=== PATIENT | male | born 1990 | race Caucasian/White ===

== ENCOUNTER 2017-09-22 12:27 | Inpatient (IN) | payer MEDICAID ==
[2017-09-22 13:12] LABS: CHLORIDE,CL 105 mmol/L (98-107); SODIUM,NA 141 mmol/L (136-145)
[2017-09-22] MEDS ORDERED: Ondansetron 4 MG Tab.DIS PO PRN (15:00)
[2017-09-22] MEDS ORDERED: Ondansetron 4 MG/2 ML SDV IVPUSH PRN (15:00)
[2017-09-22] MEDS ORDERED: Acetaminophen 325 MG Tab PO PRN (15:00)
[2017-09-22] MEDS ORDERED: Clindamycin Phosphate 600 MG in Sodium Chloride 0.9% 100 ML IV SCH (16:00)
--- NOTE | 2017-09-22 16:28 | PCM.HP ---
H&P History of Present Illness - General Date of Service: 09/22/17 Admit Problem/Dx: Admission Diagnosis/Problem Admission Diagnosis/Problem Cellulitis and abscess of lower extremity Source of Information: Patient, Other ([facility],[place]) History Limitations: Reports: Other (Patient has autism, appears to have cognitive deficits) - History of Present Illness Initial Comments - Free Text/Narative: Patient sent to us for admission and treatment of left leg cellulitis. Has been seen at [facility] by Mariaa three times since last summer for issues with lower leg dermatitis. Previous diagnoses of obesity and hypertension. Patient says his blood pressure got better when he got away from "drama" and says he is no longer on medication. Used to live in [place] but moved here to be closer to family. Disabled. Cannot say why and adds that his mother would know why. When asked if he has autism, he shakes head yes. Don notes that patient has not picked up prescribed creams/medications at the local pharmacy after being seen for the leg issues. He returned today and is more swollen, crusted, and has redness suggesting cellulitis. He denies having any fevers. No new pain in area but patient does have problems with diffuse aches and pains chronically. He denies having any other issues. Initially he did not want to be admitted here but Quinton was able to convince him of the need for aggressive treatment. Speaking with him, patient appears to have no insight into severity of changes noted in lower extremities both chronically, and acutely. Stepmother eventually arrived and said that patient is supposed to be getting help from an organization that is supposed to help him learn to live on his own , pay bills/cook/bathe but they are very unhappy with this group. [employer] is name of organization. Per estefania [employer] does not show up half the time they are scheduled to show, including today. Staff member was supposed to be present for today's medical appointment and did not show. - Related Data Allergies/Adverse Reactions: Allergies Allergy/AdvReac Type Severity Reaction Status Date / Time No Known Allergies Allergy Verified 09/22/17 17:05 Past Medical History Cardiovascular History: Reports: Hypertension Psychiatric History: Reports: Anxiety, Autism, Other (See Below) (Uncertain what other official diagnoses pertain to patient, or if diagnosed cognitive impairment present.) Endocrine/Metabolic History: Reports: Obesity/BMI 30+ Social & Family History - Family History Family Medical History: Unobtainable (Patient was abandoned by both parents at early age. Unknown family history) - Tobacco Use Smoking Status *Q: Never Smoker - Alcohol Use Alcohol Use History: No - Recreational Drug Use Recreational Drug Use: No Drug Use in Last 12 Months: No H&P Review of Systems - Review of Systems: Review Of Systems: See Below General: Reports: No Symptoms. Denies: Fever, Chills HEENT: Reports: No Symptoms Pulmonary: Reports: No Symptoms Cardiovascular: Reports: No Symptoms Gastrointestinal: Reports: No Symptoms Genitourinary: Reports: No Symptoms Musculoskeletal: Reports: No Symptoms Skin: Reports: Pruritis (lower legs), Rash (Lower legs), Erythema (lower legs), Other (crusting, scattered blisters bilateral lower legs. Open area where top layer skin sloughed off anterior left trotter, 6cm by 6cm. ) Psychiatric: Reports: No Symptoms (Denies acute changes). Denies: Hallucinations, Suicidal Ideation, Homicidal Ideation, Hallucinations (Auditory) , Hallucinations (Visual) Neurological: Reports: No Symptoms Hematologic/Lymphatic: Reports: No Symptoms Exam - Exam Exam: See Below - Exam General: Alert, Oriented, Cooperative, Other (moderately poor eye contact, slightly anxious) HEENT: Conjunctiva Clear, EOMI, Hearing Intact, Mucosa Moist & [place], Nares Patent, Pupils Equal, Pupils Reactive, TMs Clear (right TM clear, left blocked by wax) Neck: Supple, Trachea Midline Lungs: Clear to Auscultation, Normal Respiratory Effort Cardiovascular: Regular Rate, Regular Rhythm GI/Abdominal Exam: Normal Bowel Sounds, Soft, Non-Tender, Other (very obese abdomen) (Male) Exam: Deferred Rectal (Males) Exam: Deferred Back Exam: No: CVA Tenderness (L), CVA Tenderness (R), Muscle Spasm, Paraspinal Tenderness Extremities: Normal Capillary Refill, Other (bilateral edema, pitting, both lower extremities. Erythema noted below knees/involving ankles. Open area of weeping noted anterior left trotter. Scattered blisters noted bilaterally. Unable to palpate pulse distally but good cap refill. Warm to touch distally. ) Peripheral Pulses: 2+: Radial (L), Radial (R) Skin: Other (see above) Neurological: Strength Equal Bilateral, Normal Speech, Sensation Intact Neuro Extensive - Mental Status: Alert, Oriented x3, Normal Mood/Affect DTR: 2+: Patella (L), Patella (R) Psychiatric: Anxious - Patient Data Lab Results Last 24 hrs: Laboratory Results - last 24 hr 09/22/17 09/22/17 09/22/17 Range/Units 12:31 12:31 12:35 WBC 10.9 H (4.0-10.2) K/uL RBC 4.96 (4.33-5.41) M/uL Hgb 15.1 (13.1-16.8) g/dL Hct 44.3 (39.0-49.0) % MCV 89.3 (84.0-98.0) fL MCH 30.4 (28.2-33.3) pg MCHC 34.1 (31.7-36.0) g/dL RDW 13.7 (11.2-14.1) % Plt Count 261 (150-350) K/uL Neut % (Auto) 50.4 (45.0-80.0) % Lymph % (Auto) 35.9 (10.0-50.0) % [place] % (Auto) 8.3 (2.0-14.0) % Eos % (Auto) 5.1 H (0.0-5.0) % Baso % (Auto) 0.3 (0.0-2.0) % Neut # (Auto) 5.51 (1.40-7.00) K/uL Lymph # (Auto) 3.93 H (0.50-3.50) K/uL [place] # (Auto) 0.91 (0.00-1.00) K/uL Eos # (Auto) 0.56 H (0.00-0.50) K/uL Baso # (Auto) 0.03 (0.00-0.20) K/uL Sodium 141 (136-145) mmol/L Potassium 4.0 (3.5-5.1) mmol/L Chloride 105 (98-107) mmol/L Carbon Dioxide 25.7 (21.0-32.0) mmol/L BUN 15 (7-18) mg/dL Creatinine 0.70 (0.51-1.17) mg/dL Est Cr Clr Drug Dosing TNP Estimated GFR (MDRD) > 60 mL/min Glucose 103 (74-106) mg/dL Hemoglobin A1c 5.7 (4.3-5.7) % Calcium 8.8 (8.5-10.1) mg/dL Total Bilirubin 0.3 (0.2-1.0) mg/dL AST 16 (15-37) U/L ALT 39 (12-78) U/L Alkaline Phosphatase 85 (46-116) IU/L C-Reactive Protein 5.9 H (<=0.9) mg/dL Total Protein 7.5 (6.4-8.2) g/dL Albumin 3.3 L (3.4-5.0) g/dL Result Diagrams: 09/22/17 12:31 09/22/17 12:31 *Q Meaningful Use (ADM) - VTE *Q VTE Criteria *Q: VTE Mechanical Contraindications *Q: Bilateral Lower Dermatits - Stroke *Q Stroke Criteria *Q: - AMI *Q AMI Criteria *Q: - Problem List (1) Cellulitis SNOMED Code(s): 623949139 ICD Code: L03.90 - CELLULITIS, UNSPECIFIED Status: Acute Priority: High Current Visit: Yes Onset Date: Unknown Problem Details: Patient diagnosed with bilateral cellulitis of lower extremities, left greater than right. Had negative lower extremity US of left leg ordered by [facility] prior to referral for admission. Patient has chronic problems with swelling of both lower legs. Attempted to culture left leg errosion after bath today. Will place patient on IV Clindamycin. Qualifiers: Site of cellulitis of extremity: lower extremity (2) Autism SNOMED Code(s): 298005978 ICD Code: F84.0 - AUTISTIC DISORDER Status: Chronic Priority: High Current Visit: Yes Problem Details: Patient is currently attempting to live on own and is not receiving help/support from contracted agency that was promised. Unsafe in current environment. No insight into chronic health problems /personal care/current infection. (3) Hypertension SNOMED Code(s): 85620846 ICD Code: I10 - ESSENTIAL (PRIMARY) HYPERTENSION Status: Chronic Priority : Medium Current Visit: Yes Problem Details: Uncertain what patient's baseline BPs have been trending. He does not check these at home. Was supposedly on medication for this in past. Will have BP checked QID while inpatient. Anxiety also contributes to his elevated readings, including on admission. Metoprolol PO given. Single dose Lasix given due to lower extremity edema and elevated BP. Will continue to observe. (4) Morbid obesity SNOMED Code(s): 520798960 ICD Code: E66.01 - MORBID (SEVERE) OBESITY DUE TO EXCESS CALORIES Status: Chronic Priority: Medium Current Visit: Yes (5) Poor hygiene SNOMED Code(s): 626435190 ICD Code: R46.0 - VERY LOW LEVEL OF PERSONAL HYGIENE Status: Chronic Priority: Medium Current Visit: Yes Problem Details: Extremely dirty, clothes included. Patient given several whirlpool baths in succession after admission. No insight into problem. Not receiving promised help in this area by contracted home assistance provider per mark. (6) Noncompliance SNOMED Code(s): 0322325 ICD Code: Z91.19 - PATIENT'S NONCOMPLIANCE W OTH MEDICAL TREATMENT AND REGIMEN Status: Acute Priority: High Current Visit: Yes Problem Details : Suspected to be due to congnitive limitations/autism. Not receiving promised help by contracted organization that is supposed to go with him to appointments and make sure that he follows through with recommendations. (7) Self neglect SNOMED Code(s): 561916098 ICD Code: R46.89 - OTHER SYMPTOMS AND SIGNS INVOLVING APPEARANCE AND BEHAVIOR Status: Chronic Priority: High Current Visit: Yes Problem Details: See above Problem List Initiated/Reviewed/Updated: Yes Orders Last 24hrs: Active Orders 24 hr Category Date Time Status Patient Status [ADT] Routine ADT 09/22/17 14:54 Ordered Height and Weight [RC] DAILY Care 09/22/17 14:54 Ordered Oxygen Therapy [RC] PRN Care 09/22/17 14:54 Ordered Pulse Oximetry [RC] PRN Care 09/22/17 15:08 Ordered Up With Assistance [RC] ASDIRECTED Care 09/22/17 14:54 Ordered VTE/DVT Education [RC] PER UNIT ROUTINE Care 09/22/17 14:54 Ordered Vital Signs [RC] Q8HR Care 09/22/17 14:54 Ordered Whirlpool [RC] DAILY Care 09/22/17 15:15 Ordered Wound Care [RC] DAILY Care 09/22/17 15:16 Ordered Consult to Case Management [CONS] Routine Cons 09/22/17 14:54 Ordered Heart Healthy Diet [DIET] Diet 09/22/17 Dinner Ordered Venous Doppler Lwr Ext Lt [US] Stat Exams 09/22/17 13:00 Taken CULTURE BLOOD [BC] Stat Lab 09/22/17 15:15 Ordered CULTURE BLOOD [BC] Stat Lab 09/22/17 15:15 Ordered CULTURE WOUND [RM] Routine Lab 09/22/17 15:26 Uncollected Acetaminophen [Tylenol] Med 09/22/17 14:54 Ordered 650 mg PO Q4H PRN Clindamycin Phosphate [Cleocin] 600 mg Med 09/22/17 15:30 Ordered Sodium Chloride 0.9% [Normal Saline] 100 ml IV Q8H Enoxaparin [Lovenox] Med 09/23/17 08:00 Ordered 40 mg SUBCUT DAILY Ondansetron [Zofran ODT] Med 09/22/17 14:54 Ordered 4 mg PO Q4H PRN Ondansetron [Zofran] Med 09/22/17 14:54 Ordered 4 mg IVPUSH Q6H PRN Sodium Chloride 0.9% [Saline Flush] Med 09/22/17 14:54 Ordered 10 ml FLUSH ASDIRECTED PRN Blood Culture x2 Reflex Set [OM.PC] Stat Oth 09/22/17 14:54 Ordered Saline Lock Insert [OM.PC] Routine Oth 09/22/17 14:54 Ordered VTE Mechanical Contraindications [AST] Per Unit Routine Oth 09/22/17 14:54 Ordered Resuscitation Status Routine Resus Stat 09/22/17 14:54 Ordered Medication Orders Acetaminophen (Tylenol) 650 mg PO Q4H PRN PRN Reason: Pain (Mild 1-3)/fever Enoxaparin Sodium (Lovenox) 40 mg SUBCUT DAILY MICHAEL Clindamycin Phosphate 600 mg/ (Sodium Chloride) 104 mls @ 200 mls/hr IV Q8H MICHAEL Ondansetron HCl (Zofran Odt) 4 mg PO Q4H PRN PRN Reason: Nausea/Vomiting Ondansetron HCl (Zofran) 4 mg IVPUSH Q6H PRN PRN Reason: Nausea/Vomiting Sodium Chloride (Saline Flush) 10 ml FLUSH ASDIRECTED PRN PRN Reason: Keep Vein Open Assessment/Plan Comment:: Patient will be given IV CLindamycin. See above for rest of plan. Vulnerable adult forms filled out. Unsafe for patient to return home with current situation and current home assistance provider. PT and OT consult requested for Monday
[2017-09-22] MEDS ORDERED: Furosemide 20 MG/2 ML VIAL IVPUSH ONE (16:56)
[2017-09-22] MEDS ORDERED: Sodium Chloride 0.9% 1,000 ML IV SCH (17:00)
[2017-09-22] MEDS: Bacitracin/Neomycin/Polymyxin B Oint 0.9 GM U/D Packet TOP SCH (17:11)
[2017-09-22] MEDS: Metoprolol Tartrate 25 MG Tab PO SCH ×2 (17:12→20:47)
[2017-09-22] MEDS: Sodium Chloride 0.9% 10 ML Syringe FLUSH PRN ×2 (17:14→17:18)
[2017-09-22] MEDS ORDERED: Metoprolol Tartrate 25 MG Tab PO SCH (20:00)
[2017-09-22] MEDS: Enoxaparin 40 MG/0.4 ML Syringe SUBCUT SCH (20:48)
[2017-09-23] MEDS: Clindamycin HCl 150 MG Cap PO SCH ×2 (01:35→06:44)
[2017-09-23] MEDS: Metoprolol Tartrate 25 MG Tab PO SCH ×2 (07:41→19:57)
[2017-09-23] MEDS: Bacitracin/Neomycin/Polymyxin B Oint 0.9 GM U/D Packet TOP SCH (07:42)
[2017-09-23] MEDS ORDERED: Enoxaparin 40 MG/0.4 ML Syringe SUBCUT SCH (08:00)
[2017-09-23] MEDS: Clindamycin Phosphate 600 MG in Sodium Chloride 0.9% 100 ML IV SCH ×2 (14:56→22:42)
[2017-09-23] MEDS ORDERED: Fluconazole 200 MG Tab PO SCH (16:00)
--- NOTE | 2017-09-23 16:52 | PCM.PN ---
- General Info Date of Service: 09/23/17 Admission Dx/Problem (Free Text): Admission Diagnosis/Problem Admission Diagnosis/Problem Cellulitis and abscess of lower extremity Subjective Update: No changes per patient. Overall he feels like his usual self. Functional Status: Reports: Pain Controlled, Tolerating Diet, Ambulating, Urinating. Denies: New Symptoms - Review of Systems General: Reports: No Symptoms HEENT: Reports: No Symptoms Pulmonary: Reports: No Symptoms Cardiovascular: Reports: No Symptoms Gastrointestinal: Reports: No Symptoms Genitourinary: Reports: No Symptoms Musculoskeletal: Reports: No Symptoms Skin: Reports: Rash Neurological: Reports: No Symptoms Psychiatric: Reports: No Symptoms - Patient Data Vitals - Most Recent: Last Vital Signs Temp 36.5 C 09/23/17 15:35 Pulse 89 09/23/17 15:35 Resp 17 09/23/17 15:35 BP 150/65 H 09/23/17 15:35 Pulse Ox 97 09/23/17 15:35 Weight - Most Recent: 202.6 kg I&O - Last 24 Hours: Intake & Output 09/23/17 09/23/17 09/23/17 06:59 14:59 22:59 Intake Total 500 1100 Output Total 450 Balance 500 650 Lab Results Last 24 Hours: Laboratory Results - last 24 hr 09/22/17 Range/Units 22:30 Specimen Type Urinvoid Urine Color Yellow Urine Appearance Clear Urine pH 5.5 (5.0-9.0) Ur Specific [place] 1.020 (1.005-1.030) Urine Protein Negative (NEGATIVE) mg/dL Urine Glucose (UA) Negative (NEGATIVE) mg/dL Urine Ketones Negative (NEGATIVE) mg/dL Urine Occult Blood Negative (NEGATIVE) Urine Nitrite Negative (NEGATIVE) Urine Bilirubin Negative (NEGATIVE) Urine Urobilinogen 0.2 (0.2-1.0) E.U./dL Ur Leukocyte Esterase Negative (NEGATIVE) Urine RBC 0-5 /HPF Urine WBC 0-5 /HPF Ur Epithelial Cells Few /LPF Urine Bacteria Few (NONE TO FEW) /HPF Urine Mucus Rare H (NEGATIVE) /LPF Tal Results Last 24 Hours: Microbiology 09/22/17 16:15 Aerobic Blood Culture - Preliminary Blood - Venous NO GROWTH AFTER 1 DAY Anaerobic Blood Culture - Preliminary NO GROWTH AFTER 1 DAY Med Orders - Current: Current Medications Acetaminophen (Tylenol) 650 mg PO Q4H PRN PRN Reason: Pain (Mild 1-3)/fever Enoxaparin Sodium (Lovenox) 40 mg SUBCUT DAILY@20 [facility] Last Admin: 09/22/17 20:48 Dose: 40 mg Fluconazole (Diflucan) 200 mg PO DAILY [facility] Clindamycin Phosphate 600 mg/ (Sodium Chloride) 104 mls @ 200 mls/hr IV Q8H [facility] Last Admin: 09/23/17 14:56 Dose: 200 mls/hr Metoprolol Tartrate (Lopressor) 25 mg PO Q12HR [facility] Last Admin: 09/23/17 07:41 Dose: 25 mg Neomycin/Polymyxin/Bacitracin (Triple Antibiotic Oint) 1 each TOP DAILY [facility] Last Admin: 09/23/17 07:42 Dose: 1 each Ondansetron HCl (Zofran Odt) 4 mg PO Q4H PRN PRN Reason: Nausea/Vomiting Ondansetron HCl (Zofran) 4 mg IVPUSH Q6H PRN PRN Reason: Nausea/Vomiting Sodium Chloride (Saline Flush) 10 ml FLUSH ASDIRECTED PRN PRN Reason: Keep Vein Open Last Admin: 09/22/17 17:18 Dose: 10 ml Discontinued Medications Clindamycin HCl (Cleocin) 450 mg PO Q6H [facility] Last Admin: 09/23/17 06:44 Dose: 450 mg Enoxaparin Sodium (Lovenox) 40 mg SUBCUT DAILY [facility] Fluconazole (Diflucan) 200 mg PO DAILY [facility] Stop: 09/23/17 16:01 Furosemide (Lasix) 20 mg IVPUSH ONETIME ONE Stop: 09/22/17 16:57 Last Admin: 09/22/17 17:15 Dose: 20 mg Clindamycin Phosphate 600 mg/ (Sodium Chloride) 104 mls @ 200 mls/hr IV Q8H [facility] Last Admin: 09/22/17 17:14 Dose: 200 mls/hr Sodium Chloride (Normal Saline) 1,000 mls @ 150 mls/hr IV ASDIRECTED [facility] Last Admin: 09/22/17 18:09 Dose: 150 mls/hr Metoprolol Tartrate (Lopressor) 25 mg PO Q12HR [facility] - Exam General: Alert, Oriented, Cooperative, No Acute Distress HEENT: Pupils Equal, Pupils Reactive, EOMI, Mucous Membr. Moist/[place] Neck: Supple Lungs: Clear to Auscultation, Normal Respiratory Effort Cardiovascular: Regular Rate, Regular Rhythm GI/Abdominal Exam: Normal Bowel Sounds, Soft, Non-Tender (Male) Exam: Deferred Back Exam: No: CVA Tenderness (L), CVA Tenderness (R), Muscle Spasm, Paraspinal Tenderness, Vertebral Tenderness Extremities: Other (Significant edema noted lower extremities below knees. Crusting/rough skin noted on both lower legs, with top area sloughed off aterior left trotter. Serosanguinous drainage. Redness appears to have improved since yesterday. Edema is stable. ) Peripheral Pulses: 1+: Dorsalis Pedis (L), Dorsalis Pedis (R) (hard to palpate with edema/swelling), 2+: Radial (L), Radial (R) Skin: Rash (See above) Wound/Incisions: Drainage, Erythema Improving Neurological: No New Focal Deficit Psy/Mental Status: Alert, Normal Affect, Normal Mood - Problem List & Annotations (1) Cellulitis SNOMED Code(s): 684000954 Code(s): L03.90 - CELLULITIS, UNSPECIFIED Status: Acute Priority: High Current Visit: Yes Onset Date: Unknown Qualifiers: Site of cellulitis of extremity: lower extremity Annotation/Comment:: Patient diagnosed with bilateral cellulitis of lower extremities, left greater than right. Had negative lower extremity US of left leg ordered by [facility] prior to referral for admission. Patient has chronic problems with swelling of both lower legs. Attempted to culture left leg errosion after bath today. Receiving Clindamycin. (2) Autism SNOMED Code(s): 257716967 Code(s): F84.0 - AUTISTIC DISORDER Status: Chronic Priority: High Current Visit: Yes Annotation/Comment:: Patient is currently attempting to live on own and is not receiving help/support from contracted agency that was promised. Unsafe in current environment. No insight into his significant chronic health problems/personal care/current infection. (3) Hypertension SNOMED Code(s): 26144147 Code(s): I10 - ESSENTIAL (PRIMARY) HYPERTENSION Status: Chronic Priority : Medium Current Visit: Yes Annotation/Comment:: Uncertain what patient's baseline BPs have been trending. He does not check these at home. Was supposedly on medication for this in past. Will have BP checked QID while inpatient. Anxiety also contributes to his elevated readings, including on admission. Metoprolol PO given. Lasix given due to lower extremity edema and elevated BP. Will continue to observe. (4) Morbid obesity SNOMED Code(s): 705248940 Code(s): E66.01 - MORBID (SEVERE) OBESITY DUE TO EXCESS CALORIES Status: Chronic Priority: Medium Current Visit: Yes Annotation/Comment:: Patient severely overweight. Compromised movement, poor circulation lower extremities. Per nursing staff observed to exhibit symptoms consistent with sleep apnea overnight. (5) Poor hygiene SNOMED Code(s): 862983613 Code(s): R46.0 - VERY LOW LEVEL OF PERSONAL HYGIENE Status: Chronic Priority: Medium Current Visit: Yes Annotation/Comment:: Extremely dirty, clothes included. Patient given several whirlpool baths in succession after admission. No insight into problem. Not receiving promised help in this area by contracted home assistance provider per stepmojohanny. Noted to have problems leaving fecal material on bed sheets. Uncertain if due to lack of understanding maintaing personal hygiene after using toilet. (6) Noncompliance SNOMED Code(s): 9930666 Code(s): Z91.19 - PATIENT'S NONCOMPLIANCE W OTH MEDICAL TREATMENT AND REGIMEN Status: Acute Priority: High Current Visit: Yes Annotation/ Comment:: Suspected to be due to congnitive limitations/autism. Not receiving promised help by contracted organization that is supposed to go with him to appointments and make sure that he follows through with recommendations. (7) Self neglect SNOMED Code(s): 934261660 Code(s): R46.89 - OTHER SYMPTOMS AND SIGNS INVOLVING APPEARANCE AND BEHAVIOR Status: Chronic Priority: High Current Visit: Yes Annotation/Comment:: See above (8) Sleep apnea SNOMED Code(s): 18570958 Code(s): G47.30 - SLEEP APNEA, UNSPECIFIED Status: Acute Priority: Medium Current Visit: Yes Annotation/Comment:: Strongly suspect sleep apnea based on nursing observations. Patient would benefit from sleep study to confirm. Significant concerns as to proper and consistent use of CPAP if patient requires this and is living on own. - Problem List Review Problem List Initiated/Reviewed/Updated: Yes - My Orders Last 24 Hours: My Active Orders 09/22/17 16:15 CULTURE BLOOD [BC] Stat 09/22/17 16:40 Bacitracin/Neomycin/Polymyxin [Triple Antibiotic Oint] 1 each TOP DAILY 09/22/17 16:41 Metoprolol Tartrate [Lopressor] 25 mg PO Q12HR 09/22/17 17:00 CULTURE BLOOD [BC] Stat CULTURE WOUND [RM] Routine 09/22/17 18:27 Intake and Output Strict [RC] 06,14,22 09/22/17 18:39 Consult to Occupational Therapy [OT Evaluation and Treatment] [CONS] Routine PT Evaluation and Treatment [CONS] Routine 09/22/17 20:00 Enoxaparin [Lovenox] 40 mg SUBCUT DAILY@20 09/22/17 23:31 Discontinue Saline Lock [Peripheral IV Discontinue] [OM.PC] Routine 09/22/17 Dinner Heart Healthy Diet [DIET] 09/23/17 14:00 Clindamycin Phosphate [Cleocin] 600 mg Sodium Chloride 0.9% [Normal Saline] 100 ml IV Q8H 09/24/17 05:11 CBC WITH AUTO DIFF [HEME] AM COMPREHENSIVE METABOLIC PN,CMP [CHEM] AM 09/24/17 08:00 Fluconazole [Diflucan] 200 mg PO DAILY 09/25/17 05:11 CBC WITH AUTO DIFF [HEME] AM COMPREHENSIVE METABOLIC PN,CMP [CHEM] AM - Assessment Assessment:: Severe lower extremity edema, severe obesity, lower leg cellulitis in vulnerable adult with autism. Suspected sleep apnea. - Plan Plan:: Patient will be given IV CLindamycin. See above for rest of plan. Vulnerable adult forms filled out. Unsafe for patient to return home with current situation and current home assistance provider. PT and OT consult requested for Monday
[2017-09-23] MEDS: Enoxaparin 40 MG/0.4 ML Syringe SUBCUT SCH (19:57)
[2017-09-23] MEDS: Sodium Chloride 0.9% 10 ML Syringe FLUSH PRN ×2 (22:42→22:46)
[2017-09-24] MEDS: Clindamycin Phosphate 600 MG in Sodium Chloride 0.9% 100 ML IV SCH ×3 (06:05→22:08)
[2017-09-24] MEDS: Sodium Chloride 0.9% 10 ML Syringe FLUSH PRN ×4 (06:06→22:08)
[2017-09-24 07:15] LABS: CHLORIDE,CL 104 mmol/L (98-107); SODIUM,NA 141 mmol/L (136-145)
[2017-09-24] MEDS: Metoprolol Tartrate 25 MG Tab PO SCH (07:50)
[2017-09-24] MEDS: Fluconazole 200 MG Tab PO SCH (07:51)
[2017-09-24] MEDS: Bacitracin/Neomycin/Polymyxin B Oint 0.9 GM U/D Packet TOP SCH (07:51)
--- NOTE | 2017-09-24 11:53 | PCM.PN ---
- General Info Date of Service: 09/24/17 Admission Dx/Problem (Free Text): Admission Diagnosis/Problem Admission Diagnosis/Problem Cellulitis and abscess of lower extremity Subjective Update: No changes per patient. Overall he feels like his usual self. Functional Status: Reports: Pain Controlled, Tolerating Diet, Ambulating, Urinating. Denies: New Symptoms - Review of Systems General: Reports: No Symptoms HEENT: Reports: No Symptoms Pulmonary: Reports: No Symptoms Cardiovascular: Reports: No Symptoms Gastrointestinal: Reports: No Symptoms Genitourinary: Reports: No Symptoms Musculoskeletal: Reports: No Symptoms Skin: Reports: Rash Neurological: Reports: No Symptoms Psychiatric: Reports: No Symptoms - Patient Data Vitals - Most Recent: Last Vital Signs Temp 36.3 C 09/24/17 07:09 Pulse 83 09/24/17 07:50 Resp 17 09/24/17 07:09 BP 140/84 09/24/17 07:50 Pulse Ox 94 L 09/24/17 07:09 Weight - Most Recent: 202.756 kg I&O - Last 24 Hours: Intake & Output 09/23/17 09/24/17 09/24/17 22:59 06:59 14:59 Intake Total 1000 200 720 Output Total 400 700 Balance 600 -500 720 Lab Results Last 24 Hours: Laboratory Results - last 24 hr 09/24/17 09/24/17 Range/Units 06:54 06:54 WBC 10.1 (4.0-10.2) K/uL RBC 4.43 (4.33-5.41) M/uL Hgb 13.5 D (13.1-16.8) g/dL Hct 40.1 (39.0-49.0) % MCV 90.5 (84.0-98.0) fL MCH 30.5 (28.2-33.3) pg MCHC 33.7 (31.7-36.0) g/dL RDW 13.5 (11.2-14.1) % Plt Count 232 (150-350) K/uL Neut % (Auto) 52.2 (45.0-80.0) % Lymph % (Auto) 36.6 (10.0-50.0) % [place] % (Auto) 6.8 (2.0-14.0) % Eos % (Auto) 4.2 (0.0-5.0) % Baso % (Auto) 0.2 (0.0-2.0) % Neut # (Auto) 5.26 (1.40-7.00) K/uL Lymph # (Auto) 3.68 H (0.50-3.50) K/uL [place] # (Auto) 0.68 (0.00-1.00) K/uL Eos # (Auto) 0.42 (0.00-0.50) K/uL Baso # (Auto) 0.02 (0.00-0.20) K/uL Sodium 141 (136-145) mmol/L Potassium 4.0 (3.5-5.1) mmol/L Chloride 104 (98-107) mmol/L Carbon Dioxide 27.5 (21.0-32.0) mmol/L BUN 10 (7-18) mg/dL Creatinine 0.75 (0.51-1.17) mg/dL Est Cr Clr Drug Dosing 176.82 mL/min Estimated GFR (MDRD) > 60 mL/min Glucose 100 (74-106) mg/dL Calcium 8.2 L (8.5-10.1) mg/dL Total Bilirubin 0.4 (0.2-1.0) mg/dL AST 17 (15-37) U/L ALT 31 (12-78) U/L Alkaline Phosphatase 75 (46-116) IU/L Total Protein 6.5 (6.4-8.2) g/dL Albumin 2.8 L (3.4-5.0) g/dL Tal Results Last 24 Hours: Microbiology 09/22/17 17:00 Wound Culture - Preliminary Leg, Left Staphylococcus Aureus 09/22/17 17:00 Aerobic Blood Culture - Preliminary Blood - Venous - Lab Draw NO GROWTH AFTER 1 DAY Anaerobic Blood Culture - Preliminary NO GROWTH AFTER 1 DAY 09/22/17 16:15 Aerobic Blood Culture - Preliminary Blood - Venous NO GROWTH AFTER 1 DAY Anaerobic Blood Culture - Preliminary NO GROWTH AFTER 1 DAY Med Orders - Current: Current Medications Acetaminophen (Tylenol) 650 mg PO Q4H PRN PRN Reason: Pain (Mild 1-3)/fever Enoxaparin Sodium (Lovenox) 40 mg SUBCUT DAILY@20 [facility] Last Admin: 09/23/17 19:57 Dose: 40 mg Fluconazole (Diflucan) 200 mg PO DAILY [facility] Last Admin: 09/24/17 07:51 Dose: 200 mg Clindamycin Phosphate 600 mg/ (Sodium Chloride) 104 mls @ 200 mls/hr IV Q8H [facility] Last Admin: 09/24/17 06:05 Dose: 200 mls/hr Metoprolol Tartrate (Lopressor) 25 mg PO Q12HR [facility] Last Admin: 09/24/17 07:50 Dose: 25 mg Neomycin/Polymyxin/Bacitracin (Triple Antibiotic Oint) 1 each TOP DAILY [facility] Last Admin: 09/24/17 07:51 Dose: 1 each Ondansetron HCl (Zofran Odt) 4 mg PO Q4H PRN PRN Reason: Nausea/Vomiting Ondansetron HCl (Zofran) 4 mg IVPUSH Q6H PRN PRN Reason: Nausea/Vomiting Sodium Chloride (Saline Flush) 10 ml FLUSH ASDIRECTED PRN PRN Reason: Keep Vein Open Last Admin: 09/24/17 06:06 Dose: 10 ml Discontinued Medications Clindamycin HCl (Cleocin) 450 mg PO Q6H [facility] Last Admin: 09/23/17 06:44 Dose: 450 mg Enoxaparin Sodium (Lovenox) 40 mg SUBCUT DAILY [facility] Fluconazole (Diflucan) 200 mg PO DAILY [facility] Stop: 09/23/17 16:01 Last Admin: 09/23/17 17:05 Dose: 200 mg Furosemide (Lasix) 20 mg IVPUSH ONETIME ONE Stop: 09/22/17 16:57 Last Admin: 09/22/17 17:15 Dose: 20 mg Clindamycin Phosphate 600 mg/ (Sodium Chloride) 104 mls @ 200 mls/hr IV Q8H [facility] Last Admin: 09/22/17 17:14 Dose: 200 mls/hr Sodium Chloride (Normal Saline) 1,000 mls @ 150 mls/hr IV ASDIRECTED [facility] Last Admin: 09/22/17 18:09 Dose: 150 mls/hr Metoprolol Tartrate (Lopressor) 25 mg PO Q12HR [facility] - Exam General: Alert, Oriented, Cooperative, No Acute Distress HEENT: Pupils Equal, Pupils Reactive, EOMI Neck: Supple Lungs: Clear to Auscultation, Normal Respiratory Effort Cardiovascular: Regular Rate, Regular Rhythm GI/Abdominal Exam: Normal Bowel Sounds, Soft, Non-Tender (Male) Exam: Deferred Back Exam: No: CVA Tenderness (L), CVA Tenderness (R) Extremities: Non-Tender, Normal Capillary Refill Peripheral Pulses: 1+: Radial (L), Radial (R) (hard to palpate due to body mass) , Dorsalis Pedis (L), Dorsalis Pedis (R) Skin: Warm, Dry, Rash (Improving erythema lower legs, weeping area left anterir trotter improved with no active drainage at this time. Nontender. ) Wound/Incisions: Healing Well, No Drainage, Erythema Improving Neurological: No New Focal Deficit Psy/Mental Status: Alert, Normal Affect, Normal Mood - Problem List & Annotations (1) Cellulitis SNOMED Code(s): 263247752 Code(s): L03.90 - CELLULITIS, UNSPECIFIED Status: Acute Priority: High Current Visit: Yes Onset Date: Unknown Qualifiers: Site of cellulitis of extremity: lower extremity Annotation/Comment:: Patient diagnosed with bilateral cellulitis of lower extremities, left greater than right. Had negative lower extremity US of left leg ordered by [facility] prior to referral for admission. Patient has chronic problems with swelling of both lower legs. Receiving Clindamycin. Staph Aureus identified on culture. (2) Autism SNOMED Code(s): 162867681 Code(s): F84.0 - AUTISTIC DISORDER Status: Chronic Priority: High Current Visit: Yes Annotation/Comment:: Patient is currently attempting to live on own and is not receiving help/support from contracted agency that was promised. Unsafe in current environment. No insight into his significant chronic health problems/personal care/current infection. (3) Hypertension SNOMED Code(s): 94899553 Code(s): I10 - ESSENTIAL (PRIMARY) HYPERTENSION Status: Chronic Priority : Medium Current Visit: Yes Annotation/Comment:: Uncertain what patient's baseline BPs have been trending. He does not check these at home. Was supposedly on medication for this in past. Will have BP checked QID while inpatient. Anxiety also contributes to his elevated readings, including on admission. Metoprolol started. Lasix given due to lower extremity edema and elevated BP. Will continue to observe. (4) Morbid obesity SNOMED Code(s): 950681224 Code(s): E66.01 - MORBID (SEVERE) OBESITY DUE TO EXCESS CALORIES Status: Chronic Priority: Medium Current Visit: Yes Annotation/Comment:: Patient severely overweight. Compromised movement, poor circulation lower extremities. Per nursing staff observed to exhibit symptoms consistent with sleep apnea overnight. (5) Poor hygiene SNOMED Code(s): 261826663 Code(s): R46.0 - VERY LOW LEVEL OF PERSONAL HYGIENE Status: Chronic Priority: Medium Current Visit: Yes Annotation/Comment:: Extremely dirty, clothes included. Patient given several whirlpool baths in succession after admission. No insight into problem. Not receiving promised help in this area by contracted home assistance provider per mark. Noted to have problems leaving fecal material on bed sheets. Uncertain if due to lack of understanding maintaing personal hygiene after using toilet. (6) Noncompliance SNOMED Code(s): 2156423 Code(s): Z91.19 - PATIENT'S NONCOMPLIANCE W OTH MEDICAL TREATMENT AND REGIMEN Status: Acute Priority: High Current Visit: Yes Annotation/ Comment:: Suspected to be due to congnitive limitations/autism. Not receiving promised help by contracted organization that is supposed to go with him to appointments and make sure that he follows through with recommendations. (7) Self neglect SNOMED Code(s): 302957218 Code(s): R46.89 - OTHER SYMPTOMS AND SIGNS INVOLVING APPEARANCE AND BEHAVIOR Status: Chronic Priority: High Current Visit: Yes Annotation/Comment:: See above (8) Sleep apnea SNOMED Code(s): 40051082 Code(s): G47.30 - SLEEP APNEA, UNSPECIFIED Status: Acute Priority: Medium Current Visit: Yes Annotation/Comment:: Strongly suspect sleep apnea based on nursing observations. Patient would benefit from sleep study to confirm. Significant concerns as to proper and consistent use of CPAP if patient requires this and is living on own. - Problem List Review Problem List Initiated/Reviewed/Updated: Yes - My Orders Last 24 Hours: My Active Orders 09/23/17 14:00 Clindamycin Phosphate [Cleocin] 600 mg Sodium Chloride 0.9% [Normal Saline] 100 ml IV Q8H 09/24/17 08:00 Fluconazole [Diflucan] 200 mg PO DAILY 09/24/17 11:24 VIT D 1,25 DIHYDROXYY [REF] Routine VITAMIN D 25-HYROXY (D2, D3) [REF] Routine 09/25/17 05:11 CBC WITH AUTO DIFF [HEME] AM COMPREHENSIVE METABOLIC PN,CMP [CHEM] AM MAGNESIUM [CHEM] AM - Assessment Assessment:: Severe lower extremity edema, severe obesity, lower leg cellulitis in vulnerable adult with autism. Suspected sleep apnea. Labs show improved WBC. Also lower Albumin and Calcium. Correction of calcium due to low albumin performed and that returns it to within normal limits. - Plan Plan:: Patient receiving IV CLindamycin. Improving. See above for rest of plan. Vulnerable adult forms filled out. Unsafe for patient to return home with current situation and current home assistance provider. Patient noted to have some erythema around upper thighs per nursing but he does not wish to have area examined. Suspect likely tinea given his poor hygiene/dirty clothes. Started on diflucan. PT and OT consult requested for Monday Magnesium and Vitamin D tests ordered for tomorrow.
[2017-09-24] MEDS: Metoprolol Succinate 50 MG Tab.ER PO SCH (12:24)
[2017-09-24] MEDS: Furosemide 20 MG Tab PO SCH (12:24)
[2017-09-24] MEDS: Enoxaparin 40 MG/0.4 ML Syringe SUBCUT SCH (19:53)
[2017-09-25] MEDS: Clindamycin Phosphate 600 MG in Sodium Chloride 0.9% 100 ML IV SCH ×3 (06:17→21:13)
[2017-09-25] MEDS: Sodium Chloride 0.9% 10 ML Syringe FLUSH PRN ×3 (06:18→21:13)
[2017-09-25] MEDS: Fluconazole 200 MG Tab PO SCH (07:46)
[2017-09-25 07:47] LABS: CHLORIDE,CL 103 mmol/L (98-107); SODIUM,NA 140 mmol/L (136-145)
[2017-09-25] MEDS: Metoprolol Succinate 50 MG Tab.ER PO SCH (07:47)
[2017-09-25] MEDS: Bacitracin/Neomycin/Polymyxin B Oint 0.9 GM U/D Packet TOP SCH (07:47)
[2017-09-25] MEDS: Furosemide 20 MG Tab PO SCH (07:47)
--- NOTE | 2017-09-25 18:15 | PCM.PN ---
- General Info Date of Service: 09/25/17 Admission Dx/Problem (Free Text): Cellulitis Functional Status: Reports: Pain Controlled, Tolerating Diet, Ambulating, Urinating. Denies: New Symptoms, Incentive Spirometry Pain Score: 0 - Review of Systems General: Reports: No Symptoms. Denies: Fever, Weakness, Fatigue, Malaise, Chills, Night Sweats, Appetite (Appetite good) HEENT: Reports: No Symptoms. Denies: Ear Pain, Eye Pain, Headaches, Post Nasal Drip, Sinus Congestion, Sore Throat, Rhinitis, Visual Changes Pulmonary: Reports: No Symptoms. Denies: Shortness of Breath, Pleuritic Chest Pain, Cough, Sputum, Wheezing Cardiovascular: Reports: Edema (Stable dependent). Denies: Chest Pain, Palpitations, Dyspnea on Exertion, Orthopnea, Lightheadedness Gastrointestinal: Reports: No Symptoms, Other (Bowel movement earlier this morning at 5:30 a.m. by patient history). Denies: Abdominal Pain, Constipation , Decreased Appetite, Diarrhea, Difficulty Swallowing, Flatus, Hematochezia, Melena, Nausea Genitourinary: Reports: No Symptoms. Denies: Dysuria, Frequency, Burning, Pain , Urgency, Incontinence, Hematuria, Retention, Flank Pain Musculoskeletal: Reports: No Symptoms. Denies: Neck Pain, Shoulder Pain, Arm Pain, Back Pain, Leg Pain Skin: Reports: Other (Cellulitis of the left leg improving). Denies: Jaundice, Pallor, Diaphoresis, Bruising, Pruritis, Rash Neurological: Reports: Pre-Existing Deficit (Stable mental deficit/autism). Denies: Confusion, Dizziness, Headache, Numbness, Paresthesia, Seizure, Syncope , Trouble Speaking, Difficulty Walking, Weakness, Gait Disturbance Psychiatric: Reports: No Symptoms. Denies: Confusion, Depression, Mood Lability , Anxiety, Agitation, Cravings, Hallucinations, Suicidal Ideation, Homicidal Ideation - Patient Data Vitals - Most Recent: Last Vital Signs Temp 36.8 C 09/25/17 15:38 Pulse 84 09/25/17 15:38 Resp 16 09/25/17 15:38 BP 147/87 H 09/25/17 12:00 Pulse Ox 95 09/25/17 15:38 Vital Signs - 24 hr 09/24/17 09/25/17 09/25/17 20:00 07:30 07:47 Temperature [ 36.3 C 35.8 C Oral] Temperature [ Temporal] Pulse, 77 Peripheral Pulse, 77 Peripheral [ Left Pulse Oximetry] Pulse, 74 Peripheral [ Right Radial] Respiratory 17 18 Rate Blood Pressure 148/92 H Blood Pressure 154/101 H [Right Lower Arm] Blood Pressure 148/92 H [Right Upper Arm] O2 Sat by Pulse 96 96 Oximetry 09/25/17 09/25/17 12:00 15:38 Temperature [ 36.1 C Oral] Temperature [ 36.8 C Temporal] Pulse, Peripheral Pulse, 93 Peripheral [ Left Pulse Oximetry] Pulse, 84 Peripheral [ Right Radial] Respiratory 17 16 Rate Blood Pressure Blood Pressure [Right Lower Arm] Blood Pressure 147/87 H [Right Upper Arm] O2 Sat by Pulse 95 95 Oximetry Weight - Most Recent: 202.756 kg I&O - Last 24 Hours: Intake & Output 09/25/17 09/25/17 09/25/17 06:59 14:59 22:59 Intake Total 700 1570 750 Output Total 400 900 900 Balance 300 670 -150 Imaging Impressions - Last 24 Hours: None Lab Results Last 24 Hours: Laboratory Results - last 24 hr 09/25/17 09/25/17 Range/Units 06:53 06:53 WBC 9.1 (4.0-10.2) K/uL RBC 4.51 (4.33-5.41) M/uL Hgb 13.7 (13.1-16.8) g/dL Hct 40.7 (39.0-49.0) % MCV 90.2 (84.0-98.0) fL MCH 30.4 (28.2-33.3) pg MCHC 33.7 (31.7-36.0) g/dL RDW 13.4 (11.2-14.1) % Plt Count 245 (150-350) K/uL Neut % (Auto) 50.1 (45.0-80.0) % Lymph % (Auto) 38.6 (10.0-50.0) % [place] % (Auto) 7.1 (2.0-14.0) % Eos % (Auto) 3.9 (0.0-5.0) % Baso % (Auto) 0.3 (0.0-2.0) % Neut # (Auto) 4.54 (1.40-7.00) K/uL Lymph # (Auto) 3.49 (0.50-3.50) K/uL [place] # (Auto) 0.64 (0.00-1.00) K/uL Eos # (Auto) 0.35 (0.00-0.50) K/uL Baso # (Auto) 0.03 (0.00-0.20) K/uL Sodium 140 (136-145) mmol/L Potassium 4.0 (3.5-5.1) mmol/L Chloride 103 (98-107) mmol/L Carbon Dioxide 27.1 (21.0-32.0) mmol/L BUN 10 (7-18) mg/dL Creatinine 0.84 (0.51-1.17) mg/dL Est Cr Clr Drug Dosing 158.72 mL/min Estimated GFR (MDRD) > 60 mL/min Glucose 97 (74-106) mg/dL Calcium 8.3 L (8.5-10.1) mg/dL Magnesium 1.9 (1.8-2.4) mg/dL Total Bilirubin 0.4 (0.2-1.0) mg/dL AST 23 (15-37) U/L ALT 32 (12-78) U/L Alkaline Phosphatase 75 (46-116) IU/L Total Protein 6.7 (6.4-8.2) g/dL Albumin 3.0 L (3.4-5.0) g/dL Tal Results Last 24 Hours: Microbiology 09/22/17 17:00 Aerobic Blood Culture - Preliminary Blood - Venous - Lab Draw NO GROWTH AFTER 3 DAYS Anaerobic Blood Culture - Preliminary NO GROWTH AFTER 3 DAYS 09/22/17 16:15 Aerobic Blood Culture - Preliminary Blood - Venous NO GROWTH AFTER 3 DAYS Anaerobic Blood Culture - Preliminary NO GROWTH AFTER 3 DAYS 09/22/17 17:00 Wound Culture - Final Leg, Left Staphylococcus Aureus Klebsiella Oxytoca Med Orders - Current: Current Medications Acetaminophen (Tylenol) 650 mg PO Q4H PRN PRN Reason: Pain (Mild 1-3)/fever Enoxaparin Sodium (Lovenox) 40 mg SUBCUT DAILY@20 [facility] Last Admin: 09/24/17 19:53 Dose: 40 mg Fluconazole (Diflucan) 200 mg PO DAILY [facility] Last Admin: 09/25/17 07:46 Dose: 200 mg Furosemide (Lasix) 20 mg PO DAILY [facility] Last Admin: 09/25/17 07:47 Dose: 20 mg Clindamycin Phosphate 600 mg/ (Sodium Chloride) 104 mls @ 200 mls/hr IV Q8H [facility] Last Admin: 09/25/17 13:51 Dose: 200 mls/hr Metoprolol Succinate (Toprol Xl) 50 mg PO DAILY [facility] Last Admin: 09/25/17 07:47 Dose: 50 mg Neomycin/Polymyxin/Bacitracin (Triple Antibiotic Oint) 1 each TOP DAILY [facility] Last Admin: 09/25/17 07:47 Dose: 1 each Ondansetron HCl (Zofran Odt) 4 mg PO Q4H PRN PRN Reason: Nausea/Vomiting Ondansetron HCl (Zofran) 4 mg IVPUSH Q6H PRN PRN Reason: Nausea/Vomiting Sodium Chloride (Saline Flush) 10 ml FLUSH ASDIRECTED PRN PRN Reason: Keep Vein Open Last Admin: 09/25/17 13:53 Dose: 10 ml Discontinued Medications Clindamycin HCl (Cleocin) 450 mg PO Q6H [facility] Last Admin: 09/23/17 06:44 Dose: 450 mg Enoxaparin Sodium (Lovenox) 40 mg SUBCUT DAILY [facility] Fluconazole (Diflucan) 200 mg PO DAILY [facility] Stop: 09/23/17 16:01 Last Admin: 09/23/17 17:05 Dose: 200 mg Furosemide (Lasix) 20 mg IVPUSH ONETIME ONE Stop: 09/22/17 16:57 Last Admin: 09/22/17 17:15 Dose: 20 mg Clindamycin Phosphate 600 mg/ (Sodium Chloride) 104 mls @ 200 mls/hr IV Q8H [facility] Last Admin: 09/22/17 17:14 Dose: 200 mls/hr Sodium Chloride (Normal Saline) 1,000 mls @ 150 mls/hr IV ASDIRECTED [facility] Last Admin: 09/22/17 18:09 Dose: 150 mls/hr Metoprolol Tartrate (Lopressor) 25 mg PO Q12HR [facility] Metoprolol Tartrate (Lopressor) 25 mg PO Q12HR [facility] Last Admin: 09/24/17 07:50 Dose: 25 mg - Exam Quality Assessment: DVT Prophylaxis. No: Supplemental Oxygen, Central Line/PICC , Urine Catheter, Skin Breakdown, Restraints General: Alert, Oriented, Cooperative, No Acute Distress HEENT: Pupils Equal, Pupils Reactive, EOMI, Mucous Membr. Moist/[place] Neck: Supple, Trachea Midline, No JVD, No Thyromegaly, +2 Carotid Pulse wo Bruit. No: Lymphadenopathy Lungs: Clear to Auscultation, Normal Respiratory Effort. No: Rub GI/Abdominal Exam: Normal Bowel Sounds, Soft, Non-Tender, No Organomegaly, No Distention, No Abnormal Bruit, No Mass, Pelvis Stable, Other (Obese). No: Guarding (Male) Exam: Deferred Back Exam: Normal Inspection, Full Range of Motion. No: CVA Tenderness (L), CVA Tenderness (R), Muscle Spasm Extremities: Normal Range of Motion, Non-Tender, Normal Capillary Refill, Pedal Edema (Trace to +1 bilateral pedal/pretibial edema), Redness (+23 erythema 12 x 8 cm in diamet over the distal lateral left leg with no lymphangitis, drainage , etc.;). No: Ian's Sign, Increased Warmth Peripheral Pulses: 2+: Radial (L), Radial (R), Dorsalis Pedis (L), Dorsalis Pedis (R) Skin: Other (As above). No: Ecchymosis Wound/Incisions: Healing Well Neurological: No New Focal Deficit, Other (Stable mental status/autism) Psy/Mental Status: Alert, Normal Affect, Normal Mood. No: Anxious, Depressed, Agitated, Suicidal Ideation, Homicidal Ideation, Hallucinations, Withdrawal Symptoms - Problem List & Annotations (1) Cellulitis SNOMED Code(s): 958167289 Code(s): L03.90 - CELLULITIS, UNSPECIFIED Status: Acute Priority: High Current Visit: Yes Onset Date: Unknown Qualifiers: Site of cellulitis of extremity: lower extremity Laterality: left Annotation/Comment:: Patient diagnosed with bilateral cellulitis of lower extremities, left greater than right on admission, with main area of infection in his left leg as above. He apparently had a negative lower extremity US of left leg ordered by [facility] prior to referral for admission. Patient has chronic problems with swelling of both lower we have had problems with losing IV access during this hospitalization with brief oral clindamycin therapy, which was then changed back to IV clindamycin therapy. Antibiotics are appropriate based on culture and sensitivity results. Planned hospital discharge tomorrow (2) Sleep apnea SNOMED Code(s): 42116519 Code(s): G47.30 - SLEEP APNEA, UNSPECIFIED Status: Suspected Priority: Medium Current Visit: Yes Qualifiers: Sleep apnea type: unspecified type Qualified Code(s): G47.30 - Sleep apnea , unspecified Annotation/Comment:: Strongly suspect sleep apnea based on nursing observations. Patient would benefit from sleep study to confirm. Significant concerns as to proper and consistent use of CPAP if patient requires this and is living on own. (3) Autism SNOMED Code(s): 072034861 Code(s): F84.0 - AUTISTIC DISORDER Status: Chronic Priority: High Current Visit: Yes Annotation/Comment:: Care management consultation today with consultation reviewed today. The patient is currently receiving care through [facility] on a 5 times per week basis, although he may have been refusing some of his visits based on the hygiene in his home, etc. Home health to the [facility] at discharge for medication set up, etc.. Vulnerable adult services has already been contacted. The patient is thinking of moving back to [place]. He does wish to go home, although this will be delayed until tomorrow secondary to difficulty obtaining close follow-up and home care requirements. He does wish to transfer his care to NYLA Yanez [facility] (4) Hypertension SNOMED Code(s): 67647712 Code(s): I10 - ESSENTIAL (PRIMARY) HYPERTENSION Status: Chronic Priority : Medium Current Visit: Yes Qualifiers: Hypertension type: essential hypertension Qualified Code(s): I10 - Essential (primary) hypertension Annotation/Comment:: His blood pressures are stable at this time. Uncertain what patient's baseline BPs have been trending. He does not check these at home. He was supposedly on medication for this in past. Metoprolol started doing this hospitalization. Lasix given due to lower extremity edema and elevated BP. Will continue to observe closely. (5) Morbid obesity SNOMED Code(s): 507220150 Code(s): E66.01 - MORBID (SEVERE) OBESITY DUE TO EXCESS CALORIES Status: Chronic Priority: Medium Current Visit: Yes Annotation/Comment:: Patient severely overweight. Compromised movement, poor circulation lower extremities. Per nursing staff observed to exhibit symptoms consistent with sleep apnea overnight. (6) Poor hygiene SNOMED Code(s): 681385652 Code(s): R46.0 - VERY LOW LEVEL OF PERSONAL HYGIENE Status: Chronic Priority: Medium Current Visit: Yes Annotation/Comment:: Extremely dirty, clothes included, on admission. Patient given several whirlpool baths in succession after admission. No insight into problem. Not receiving promised help in this area by contracted home assistance provider per stepmom. Noted to have problems leaving fecal material on bed sheets. Uncertain if due to lack of understanding maintaing personal hygiene after using toilet. (7) Hypoalbuminemia SNOMED Code(s): 750129277 Code(s): E88.09 - OTH DISORDERS OF PLASMA-PROTEIN METABOLISM, NEC Status: Chronic Priority: Medium Current Visit: Yes Annotation/Comment:: Initiate high-protein Glucerna supplements (8) Mixed anxiety depressive disorder SNOMED Code(s): 376191987 Code(s): F41.8 - OTHER SPECIFIED ANXIETY DISORDERS Status: Chronic Priority: Medium Current Visit: Yes Onset Date: ~09/25/17 Annotation/ Comment:: Observe for now - Problem List Review Problem List Initiated/Reviewed/Updated: Yes - Assessment Assessment:: As above - Plan Plan:: As above. Extensive precautions were given to the patient, who is in agreement with the treatment plan. Planned hospital discharge tomorrow. Vitamin D level ordered today with results pending
[2017-09-25] MEDS: Enoxaparin 40 MG/0.4 ML Syringe SUBCUT SCH (21:14)
[2017-09-26] MEDS: Clindamycin Phosphate 600 MG in Sodium Chloride 0.9% 100 ML IV SCH ×2 (06:19→13:10)
[2017-09-26] MEDS: Sodium Chloride 0.9% 10 ML Syringe FLUSH PRN ×2 (06:20→13:09)
[2017-09-26] MEDS: Bacitracin/Neomycin/Polymyxin B Oint 0.9 GM U/D Packet TOP SCH (08:18)
[2017-09-26] MEDS: Furosemide 20 MG Tab PO SCH (08:18)
[2017-09-26] MEDS: Metoprolol Succinate 50 MG Tab.ER PO SCH (08:18)
[2017-09-26] MEDS: Fluconazole 200 MG Tab PO SCH (08:18)
--- NOTE | 2017-09-26 13:01 | PCM.DCSUM1 ---
Discharge Summary - Hospital Course HPI Initial Comments: See emergency room note/admission H&P Brief History: See emergency room note/admission H&P - Discharge Data Discharge Date: 09/26/17 Discharge Disposition: Home, W Home Health Agency 06 Condition: Good - Discharge Diagnosis/Problem(s) (1) Cellulitis SNOMED Code(s): 892199973 ICD Code: L03.90 - CELLULITIS, UNSPECIFIED Status: Acute Priority: High Current Visit: Yes Onset Date: Unknown Problem Details: Patient diagnosed with bilateral cellulitis of lower extremities, left greater than right on admission, with main area of infection in his left leg as above. He apparently had a negative lower extremity US of left leg ordered by [facility] prior to referral for admission. Patient has chronic problems with swelling of both lower we have had problems with losing IV access during this hospitalization with brief oral clindamycin therapy, which was then changed back to IV clindamycin therapy. Antibiotics are appropriate based on culture and sensitivity results. Close follow-up by home health and regular provider patient wishing to change providers to NYLA Yanez at [facility] Qualifiers: Site of cellulitis of extremity: lower extremity Laterality: left (2) Sleep apnea SNOMED Code(s): 92242106 ICD Code: G47.30 - SLEEP APNEA, UNSPECIFIED Status: Suspected Priority: Medium Current Visit: Yes Problem Details: Strongly suspect sleep apnea based on nursing observations. Patient would benefit from sleep study to confirm. Significant concerns as to proper and consistent use of CPAP if patient requires this and is living on own, however. Outpatient sleep study ordered Qualifiers: Sleep apnea type: unspecified type Qualified Code(s): G47.30 - Sleep apnea , unspecified (3) Autism SNOMED Code(s): 847932287 ICD Code: F84.0 - AUTISTIC DISORDER Status: Chronic Priority: High Current Visit: Yes Problem Details: Care management consultation today with consultation reviewed yesterday. The patient is currently receiving care through [facility] on a 5 times per week basis, although he may have been refusing some of his visits based on the hygiene in his home, etc. Home health to the [facility] at discharge for medication set up, etc.. Vulnerable adult services has already been contacted. The patient is thinking of moving back to [place]. (4) Hypertension SNOMED Code(s): 95352145 ICD Code: I10 - ESSENTIAL (PRIMARY) HYPERTENSION Status: Chronic Priority : Medium Current Visit: Yes Problem Details: His blood pressures are stable at this time. Uncertain what patient's baseline BPs have been trending. He does not check these at home. He was supposedly on medication for this in past. Metoprolol started doing this hospitalization. Lasix given due to lower extremity edema and elevated BP. Will continue to observe closely. Continue to dose oral Lasix and Toprol-XL therapy for now with additional potassium chloride Qualifiers: Hypertension type: essential hypertension Qualified Code(s): I10 - Essential (primary) hypertension (5) Morbid obesity SNOMED Code(s): 419590182 ICD Code: E66.01 - MORBID (SEVERE) OBESITY DUE TO EXCESS CALORIES Status: Chronic Priority: Medium Current Visit: Yes Problem Details: Patient severely overweight. Compromised movement, poor circulation lower extremities. Per nursing staff observed to exhibit symptoms consistent with sleep apnea overnight as above. (6) Poor hygiene SNOMED Code(s): 252596925 ICD Code: R46.0 - VERY LOW LEVEL OF PERSONAL HYGIENE Status: Chronic Priority: Medium Current Visit: Yes Problem Details: Extremely dirty, clothes included, on admission. Patient given several whirlpool baths in succession after admission. No insight into problem. Not receiving promised help in this area by contracted home assistance provider per mark. Noted to have problems leaving fecal material on bed sheets. Uncertain if due to lack of understanding maintaing personal hygiene after using toilet. (7) Hypoalbuminemia SNOMED Code(s): 088168901 ICD Code: E88.09 - OTH DISORDERS OF PLASMA-PROTEIN METABOLISM, NEC Status: Chronic Priority: Medium Current Visit: Yes Problem Details: Initiate high -protein Glucerna supplements (8) Mixed anxiety depressive disorder SNOMED Code(s): 221676567 ICD Code: F41.8 - OTHER SPECIFIED ANXIETY DISORDERS Status: Chronic Priority: Medium Current Visit: Yes Onset Date: ~09/25/17 Problem Details : Observe for now - Patient Summary/Data Operative Procedure(s) Performed: None Complications: None Consults: Consultations 09/22/17 14:54 Consult to Case Management [CONS] Routine 09/22/17 18:39 Consult to Occupational Therapy [OT Evaluation and Treatment] [CONS] Routine PT Evaluation and Treatment [CONS] Routine Labs Pending at D/C: Vitamin D level Recommended Follow-up Testing/Procedures: As per discharge instructions Planned Operative Procedure(s) after DC: None Hospital Course: The patient was admitted to inpatient/acute care with initiation of IV clindamycin therapy as above. Cellulitis has significantly improved. Note complicated care issues in this patient as above with close follow-up by home health and his new regular provider. Compliance with therapy strongly encouraged. - Patient Instructions Diet: Heart Healthy Diet Diet, Other: High-protein Glucerna supplements twice a day as snacks Activity: As Tolerated Driving: May Drive Today Showering/Bathing: May Shower Wound/Incision Care: Change Dressing Daily Notify Provider of: Fever, Increased Pain, Swelling and Redness, Drainage, Nausea and/or Vomiting Other/Special Instructions: 1. Follow-up with your new regular provider, NYLA Yanez at [facility], in 7 days for reevaluation and recommended CBC, basic metabolic panel, uric acid level, and magnesium level. 2. Sleep Study to be conducted in this facility [facility] with this facility to call you at a later time for specifics. 3. Home health will be initiated MAINOR for help with medications, etc. with [facility] to continue to follow you closely. Please do not refuse any visits and be there at time of their arrival. 4. Compliance with medical therapy as discussed - Discharge Plan Prescriptions/Med Rec: Clindamycin HCl 300 mg PO BIDMEALS #28 capsule Furosemide [Lasix] 20 mg PO DAILY #20 tablet Metoprolol Succinate [Toprol XL 50mg] 50 mg PO DAILY #30 tab.er Potassium Chloride 10 meq PO DAILY #20 cap.er Home Medications: Home Meds Acetaminophen [Tylenol] 650 mg PO Q4H PRN tablet 09/26/17 [Rx] Bacitracin/Neomycin/Polymyxin [Triple Antibiotic Oint] 1 each TOP DAILY packet 09/26/17 [Rx] Clindamycin HCl 300 mg PO BIDMEALS #28 capsule 09/26/17 [Rx] Furosemide [Lasix] 20 mg PO DAILY #20 tablet 09/26/17 [Rx] Metoprolol Succinate [Toprol XL 50mg] 50 mg PO DAILY #30 tab.er 09/26/17 [Rx] Potassium Chloride 10 meq PO DAILY #20 cap.er 09/26/17 [Rx] Patient Handouts: Personal Hygiene, Cellulitis, Adult, [id number] - Discharge Summary/Plan Comment DC Time >30 min.: Yes (Coordination of care ) Discharge Summary/Plan Comment: As above. Extensive precautions were given to the patient, who is in agreement with the treatment plan. See Patient Instructions for further treatment and plan. - General Info Date of Service: 09/26/17 Admission Dx/Problem (Free Text: Cellulitis Functional Status: Reports: Pain Controlled, Tolerating Diet, Ambulating, Urinating, New Symptoms. Denies: Incentive Spirometry Numeric/FACES Score: 0 - Review of Systems General: Reports: No Symptoms. Denies: Fever, Fatigue, Malaise, Chills, Night Sweats, Appetite (Appetite good) HEENT: Reports: No Symptoms. Denies: Dysphasia, Ear Pain, Eye Pain, Headaches, Sinus Congestion, Sore Throat, Rhinitis, Visual Changes Pulmonary: Reports: No Symptoms. Denies: Shortness of Breath, Pleuritic Chest Pain, Cough, Sputum, Hemoptysis, Wheezing Cardiovascular: Reports: Edema (Stable dependent edema). Denies: Chest Pain, Palpitations, Dyspnea on Exertion, Orthopnea, PND, Lightheadedness Gastrointestinal: Reports: No Symptoms, Other (Normal bowel movement earlier this morning). Denies: Abdominal Pain, Constipation, Decreased Appetite, Diarrhea, Difficulty Swallowing, Flatus, Hematochezia, Melena, Nausea, Vomiting Genitourinary: Reports: No Symptoms. Denies: Dysuria, Frequency, Burning, Pain , Urgency, Incontinence, Hematuria, Retention, Flank Pain Musculoskeletal: Reports: No Symptoms. Denies: Neck Pain, Shoulder Pain, Arm Pain, Back Pain, Leg Pain Skin: Reports: Other (Improved cellulitis of the left leg). Denies: Diaphoresis , Bruising, Pruritis, Rash Neurological: Reports: Pre-Existing Deficit (Stable autism). Denies: Confusion , Dizziness, Headache, Numbness, Paresthesia, Tingling, Difficulty Walking, Weakness Psychiatric: Reports: No Symptoms. Denies: Confusion, Depression, Anxiety, Agitation, Cravings, Hallucinations, Suicidal Ideation, Homicidal Ideation - Patient Data Vitals - Most Recent: Last Vital Signs Temp 36.5 C 09/26/17 08:00 Pulse 81 09/26/17 08:18 Resp 16 09/26/17 08:00 BP 135/80 09/26/17 08:18 Pulse Ox 99 09/26/17 08:00 Vital Signs - 24 hr 09/25/17 09/25/17 09/26/17 15:38 20:00 08:00 Temperature [ 36.8 C 36.8 C 36.5 C Temporal] Pulse, Peripheral Pulse, 52 L 81 Peripheral [ Left Pulse Oximetry] Pulse, 84 Peripheral [ Right Radial] Respiratory 16 16 16 Rate Blood Pressure Blood Pressure 153/93 H [Right Lower Arm] Blood Pressure 133/93 H [Right Upper Arm] O2 Sat by Pulse 95 94 L 99 Oximetry 09/26/17 08:18 Temperature [ Temporal] Pulse, 81 Peripheral Pulse, Peripheral [ Left Pulse Oximetry] Pulse, Peripheral [ Right Radial] Respiratory Rate Blood Pressure 135/80 Blood Pressure [Right Lower Arm] Blood Pressure [Right Upper Arm] O2 Sat by Pulse Oximetry Weight - Most Recent: 200.669 kg I&O - Last 24 hours: Intake & Output 09/25/17 09/26/17 09/26/17 22:59 06:59 14:59 Intake Total 1490 600 720 Output Total 1600 1300 Balance -110 -700 720 Imaging Impressions - Last 24 hrs: None Lab Results - Last 24 hrs: Laboratory Tests 09/22/17 09/22/17 09/22/17 Range/Units 12:31 12:31 12:35 WBC 10.9 H (4.0-10.2) K/uL RBC 4.96 (4.33-5.41) M/uL Hgb 15.1 (13.1-16.8) g/dL Hct 44.3 (39.0-49.0) % MCV 89.3 (84.0-98.0) fL MCH 30.4 (28.2-33.3) pg MCHC 34.1 (31.7-36.0) g/dL RDW 13.7 (11.2-14.1) % Plt Count 261 (150-350) K/uL Neut % (Auto) 50.4 (45.0-80.0) % Lymph % (Auto) 35.9 (10.0-50.0) % [place] % (Auto) 8.3 (2.0-14.0) % Eos % (Auto) 5.1 H (0.0-5.0) % Baso % (Auto) 0.3 (0.0-2.0) % Neut # (Auto) 5.51 (1.40-7.00) K/uL Lymph # (Auto) 3.93 H (0.50-3.50) K/uL [place] # (Auto) 0.91 (0.00-1.00) K/uL Eos # (Auto) 0.56 H (0.00-0.50) K/uL Baso # (Auto) 0.03 (0.00-0.20) K/uL Sodium 141 (136-145) mmol/L Potassium 4.0 (3.5-5.1) mmol/L Chloride 105 (98-107) mmol/L Carbon Dioxide 25.7 (21.0-32.0) mmol/L BUN 15 (7-18) mg/dL Creatinine 0.70 (0.51-1.17) mg/dL Est Cr Clr Drug Dosing TNP Estimated GFR (MDRD) > 60 mL/min Glucose 103 (74-106) mg/dL Hemoglobin A1c 5.7 (4.3-5.7) % Calcium 8.8 (8.5-10.1) mg/dL Magnesium (1.8-2.4) mg/dL Total Bilirubin 0.3 (0.2-1.0) mg/dL AST 16 (15-37) U/L ALT 39 (12-78) U/L Alkaline Phosphatase 85 (46-116) IU/L C-Reactive Protein 5.9 H (<=0.9) mg/dL Total Protein 7.5 (6.4-8.2) g/dL Albumin 3.3 L (3.4-5.0) g/dL Specimen Type Urine Color Urine Appearance Urine pH (5.0-9.0) Ur Specific [place] (1.005-1.030) Urine Protein (NEGATIVE) mg/dL Urine Glucose (UA) (NEGATIVE) mg/dL Urine Ketones (NEGATIVE) mg/dL Urine Occult Blood (NEGATIVE) Urine Nitrite (NEGATIVE) Urine Bilirubin (NEGATIVE) Urine Urobilinogen (0.2-1.0) E.U./dL Ur Leukocyte Esterase (NEGATIVE) Urine RBC /HPF Urine WBC /HPF Ur Epithelial Cells /LPF Urine Bacteria (NONE TO FEW) /HPF Urine Mucus (NEGATIVE) /LPF 09/22/17 09/24/17 09/24/17 Range/Units 22:30 06:54 06:54 WBC 10.1 (4.0-10.2) K/uL RBC 4.43 (4.33-5.41) M/uL Hgb 13.5 D (13.1-16.8) g/dL Hct 40.1 (39.0-49.0) % MCV 90.5 (84.0-98.0) fL MCH 30.5 (28.2-33.3) pg MCHC 33.7 (31.7-36.0) g/dL RDW 13.5 (11.2-14.1) % Plt Count 232 (150-350) K/uL Neut % (Auto) 52.2 (45.0-80.0) % Lymph % (Auto) 36.6 (10.0-50.0) % [place] % (Auto) 6.8 (2.0-14.0) % Eos % (Auto) 4.2 (0.0-5.0) % Baso % (Auto) 0.2 (0.0-2.0) % Neut # (Auto) 5.26 (1.40-7.00) K/uL Lymph # (Auto) 3.68 H (0.50-3.50) K/uL [place] # (Auto) 0.68 (0.00-1.00) K/uL Eos # (Auto) 0.42 (0.00-0.50) K/uL Baso # (Auto) 0.02 (0.00-0.20) K/uL Sodium 141 (136-145) mmol/L Potassium 4.0 (3.5-5.1) mmol/L Chloride 104 (98-107) mmol/L Carbon Dioxide 27.5 (21.0-32.0) mmol/L BUN 10 (7-18) mg/dL Creatinine 0.75 (0.51-1.17) mg/dL Est Cr Clr Drug Dosing 176.82 Estimated GFR (MDRD) > 60 mL/min Glucose 100 (74-106) mg/dL Hemoglobin A1c (4.3-5.7) % Calcium 8.2 L (8.5-10.1) mg/dL Magnesium (1.8-2.4) mg/dL Total Bilirubin 0.4 (0.2-1.0) mg/dL AST 17 (15-37) U/L ALT 31 (12-78) U/L Alkaline Phosphatase 75 (46-116) IU/L C-Reactive Protein (<=0.9) mg/dL Total Protein 6.5 (6.4-8.2) g/dL Albumin 2.8 L (3.4-5.0) g/dL Specimen Type Urinvoid Urine Color Yellow Urine Appearance Clear Urine pH 5.5 (5.0-9.0) Ur Specific [place] 1.020 (1.005-1.030) Urine Protein Negative (NEGATIVE) mg/dL Urine Glucose (UA) Negative (NEGATIVE) mg/dL Urine Ketones Negative (NEGATIVE) mg/dL Urine Occult Blood Negative (NEGATIVE) Urine Nitrite Negative (NEGATIVE) Urine Bilirubin Negative (NEGATIVE) Urine Urobilinogen 0.2 (0.2-1.0) E.U./dL Ur Leukocyte Esterase Negative (NEGATIVE) Urine RBC 0-5 /HPF Urine WBC 0-5 /HPF Ur Epithelial Cells Few /LPF Urine Bacteria Few (NONE TO FEW) /HPF Urine Mucus Rare H (NEGATIVE) /LPF 09/25/17 09/25/17 Range/Units 06:53 06:53 WBC 9.1 (4.0-10.2) K/uL RBC 4.51 (4.33-5.41) M/uL Hgb 13.7 (13.1-16.8) g/dL Hct 40.7 (39.0-49.0) % MCV 90.2 (84.0-98.0) fL MCH 30.4 (28.2-33.3) pg MCHC 33.7 (31.7-36.0) g/dL RDW 13.4 (11.2-14.1) % Plt Count 245 (150-350) K/uL Neut % (Auto) 50.1 (45.0-80.0) % Lymph % (Auto) 38.6 (10.0-50.0) % [place] % (Auto) 7.1 (2.0-14.0) % Eos % (Auto) 3.9 (0.0-5.0) % Baso % (Auto) 0.3 (0.0-2.0) % Neut # (Auto) 4.54 (1.40-7.00) K/uL Lymph # (Auto) 3.49 (0.50-3.50) K/uL [place] # (Auto) 0.64 (0.00-1.00) K/uL Eos # (Auto) 0.35 (0.00-0.50) K/uL Baso # (Auto) 0.03 (0.00-0.20) K/uL Sodium 140 (136-145) mmol/L Potassium 4.0 (3.5-5.1) mmol/L Chloride 103 (98-107) mmol/L Carbon Dioxide 27.1 (21.0-32.0) mmol/L BUN 10 (7-18) mg/dL Creatinine 0.84 (0.51-1.17) mg/dL Est Cr Clr Drug Dosing 158.72 Estimated GFR (MDRD) > 60 mL/min Glucose 97 (74-106) mg/dL Hemoglobin A1c (4.3-5.7) % Calcium 8.3 L (8.5-10.1) mg/dL Magnesium 1.9 (1.8-2.4) mg/dL Total Bilirubin 0.4 (0.2-1.0) mg/dL AST 23 (15-37) U/L ALT 32 (12-78) U/L Alkaline Phosphatase 75 (46-116) IU/L C-Reactive Protein (<=0.9) mg/dL Total Protein 6.7 (6.4-8.2) g/dL Albumin 3.0 L (3.4-5.0) g/dL Specimen Type Urine Color Urine Appearance Urine pH (5.0-9.0) Ur Specific [place] (1.005-1.030) Urine Protein (NEGATIVE) mg/dL Urine Glucose (UA) (NEGATIVE) mg/dL Urine Ketones (NEGATIVE) mg/dL Urine Occult Blood (NEGATIVE) Urine Nitrite (NEGATIVE) Urine Bilirubin (NEGATIVE) Urine Urobilinogen (0.2-1.0) E.U./dL Ur Leukocyte Esterase (NEGATIVE) Urine RBC /HPF Urine WBC /HPF Ur Epithelial Cells /LPF Urine Bacteria (NONE TO FEW) /HPF Urine Mucus (NEGATIVE) /LPF [facility] Results - Last 24 hrs: Microbiology 01/19/18 17:00 Aerobic Blood Culture - Preliminary Blood - Venous - Lab Draw NO GROWTH AFTER 3 DAYS Anaerobic Blood Culture - Preliminary NO GROWTH AFTER 3 DAYS 09/22/17 16:15 Aerobic Blood Culture - Preliminary Blood - Venous NO GROWTH AFTER 3 DAYS Anaerobic Blood Culture - Preliminary NO GROWTH AFTER 3 DAYS 09/22/17 17:00 Wound Culture - Final Leg, Left Staphylococcus Aureus Klebsiella Oxytoca Microbiology 09/22/17 17:00 Blood - Venous - Lab Draw Aerobic Blood Culture - Preliminary NO GROWTH AFTER 3 DAYS 09/22/17 17:00 Blood - Venous - Lab Draw Anaerobic Blood Culture - Preliminary NO GROWTH AFTER 3 DAYS 09/22/17 16:15 Blood - Venous Aerobic Blood Culture - Preliminary NO GROWTH AFTER 3 DAYS 09/22/17 16:15 Blood - Venous Anaerobic Blood Culture - Preliminary NO GROWTH AFTER 3 DAYS 09/22/17 17:00 Leg, Left Wound Culture - Final Staphylococcus Aureus Klebsiella Oxytoca Med Orders - Current: Current Medications Acetaminophen (Tylenol) 650 mg PO Q4H PRN PRN Reason: Pain (Mild 1-3)/fever Enoxaparin Sodium (Lovenox) 40 mg SUBCUT DAILY@20 [facility] Last Admin: 09/25/17 21:14 Dose: 40 mg Fluconazole (Diflucan) 200 mg PO DAILY [facility] Last Admin: 09/26/17 08:18 Dose: 200 mg Furosemide (Lasix) 20 mg PO DAILY [facility] Last Admin: 09/26/17 08:18 Dose: 20 mg Clindamycin Phosphate 600 mg/ (Sodium Chloride) 104 mls @ 200 mls/hr IV Q8H [facility] Last Admin: 09/26/17 06:19 Dose: 200 mls/hr Metoprolol Succinate (Toprol Xl) 50 mg PO DAILY [facility] Last Admin: 09/26/17 08:18 Dose: 50 mg Neomycin/Polymyxin/Bacitracin (Triple Antibiotic Oint) 1 each TOP DAILY [facility] Last Admin: 09/26/17 08:18 Dose: 1 each Ondansetron HCl (Zofran Odt) 4 mg PO Q4H PRN PRN Reason: Nausea/Vomiting Ondansetron HCl (Zofran) 4 mg IVPUSH Q6H PRN PRN Reason: Nausea/Vomiting Sodium Chloride (Saline Flush) 10 ml FLUSH ASDIRECTED PRN PRN Reason: Keep Vein Open Last Admin: 09/26/17 06:20 Dose: 10 ml Discontinued Medications Clindamycin HCl (Cleocin) 450 mg PO Q6H [facility] Last Admin: 09/23/17 06:44 Dose: 450 mg Enoxaparin Sodium (Lovenox) 40 mg SUBCUT DAILY [facility] Fluconazole (Diflucan) 200 mg PO DAILY [facility] Stop: 09/23/17 16:01 Last Admin: 09/23/17 17:05 Dose: 200 mg Furosemide (Lasix) 20 mg IVPUSH ONETIME ONE Stop: 09/22/17 16:57 Last Admin: 09/22/17 17:15 Dose: 20 mg Clindamycin Phosphate 600 mg/ (Sodium Chloride) 104 mls @ 200 mls/hr IV Q8H [facility] Last Admin: 09/22/17 17:14 Dose: 200 mls/hr Sodium Chloride (Normal Saline) 1,000 mls @ 150 mls/hr IV ASDIRECTED [facility] Last Admin: 09/22/17 18:09 Dose: 150 mls/hr Metoprolol Tartrate (Lopressor) 25 mg PO Q12HR [facility] Metoprolol Tartrate (Lopressor) 25 mg PO Q12HR [facility] Last Admin: 09/24/17 07:50 Dose: 25 mg - Exam Quality Assessment: Reports: DVT Prophylaxis. Denies: Supplemental Oxygen, Central Line/PICC, Urine Catheter, Skin Breakdown, Restraints General: Reports: Alert, Oriented, Cooperative, No Acute Distress HEENT: Reports: Pupils Equal, Pupils Reactive, EOMI, Mucous Membr. Moist/[place]. Denies: Scleral Icterus Neck: Reports: Supple, Trachea Midline, No JVD, No Thyromegaly, +2 Carotid Pulse wo Bruit. Denies: Thyromegaly Lungs: Reports: Clear to Auscultation, Normal Respiratory Effort. Denies: Rub Cardiovascular: Reports: Regular Rate, Regular Rhythm, No Murmurs. Denies: Gallops, Rubs GI/Abdominal Exam: Normal Bowel Sounds, Soft, Non-Tender, No Organomegaly, No Distention, No Abnormal Bruit, No Mass, Pelvis Stable, Other (Obese). No: Guarding (Male) Exam: Deferred Rectal (Males) Exam: Deferred Back Exam: Reports: Normal Inspection, Full Range of Motion. Denies: CVA Tenderness (L), CVA Tenderness (R), Muscle Spasm Extremities: Normal Range of Motion, Non-Tender, Normal Capillary Refill, Pedal Edema (Borderline lymphedema of the lower extremities), Other (+23 erythema 12 x 8 cm in diamet over the distal lateral left leg with no lymphangitis, drainage , etc.;). No: Ian's Sign Skin: Reports: Other (As above) Wound/Incisions: Reports: Healing Well Neurological: Reports: No New Focal Deficit Psy/Mental Status: Reports: Alert, Normal Affect, Normal Mood, Labile Mood. Denies: Anxious, Depressed, Agitated, Suicidal Ideation, Homicidal Ideation, Hallucinations, Withdrawal Symptoms *Q Meaningful Use (DIS) - VTE *Q VTE Criteria *Q: VTE Mechanical Contraindications *Q: Bilateral Lower Dermatits - Stroke *Q Stroke Criteria *Q: - AMI *Q AMI Criteria *Q:
== END 2017-09-26 15:52 | disposition home health service (06) | DRG 603 ==
LOC: LL.US 12:27 → LL.MS 14:06
PROVIDERS: ADMIT Physician Assistant; ATTEND Family Medicine
DX: L03.116 Cellulitis of left lower limb (principal); F84.0 Autistic disorder; Z68.43 Body mass index [BMI] 50.0-59.9, adult; L03.115 Cellulitis of right lower limb; I10 Essential (primary) hypertension; R46.0 Very low level of personal hygiene; E66.01 Morbid (severe) obesity due to excess calories; Z91.19 Patient's noncompliance with other medical treatment and regimen; G47.30 Sleep apnea, unspecified; E88.09 Other disorders of plasma-protein metabolism, not elsewhere classified; F41.8 Other specified anxiety disorders; R60.9 Edema, unspecified; B95.61 Methicillin susceptible Staphylococcus aureus infection as the cause of diseases classified elsewhere; B96.1 Klebsiella pneumoniae [K. pneumoniae] as the cause of diseases classified elsewhere; R46.89 Other symptoms and signs involving appearance and behavior
CPT/HCPCS: 36415; 80053; 81001; 82306; 82652; 83036; 83735; 85025; 86140; 87040; 87070; 87077; 87186; 93971; 97165-GO; A9270-GY; J1650; J1940; J7030; J7050; S0077